=== PATIENT | male | born 1965 | race American Indian/Alaskan Native ===

== ENCOUNTER 2017-05-27 12:37 | Inpatient (IN) | payer MEDICAID ==
--- NOTE | 2017-05-27 13:03 | C.PDOC ---
History Of Present Illness 51 y/o male with PMHx HTN and COPD brought to ED by EMS from home with complaints of anxiety and feeling tremulous. Patient states he was been evicted from home and symptoms developed. Patient admits to being a daily ETOH consumer and reports last drink was this morning, states he had 1 beer. Patient is a smoker and denies fever, chills, sob, chest pain, nausea, vomiting or any other complaints at this time. PMD: Dr. Garcia Time Seen by Provider: 05/27/17 12:41 Chief Complaint (Nursing): Psychiatric Evaluation History Per: Patient History/Exam Limitations: no limitations Onset/Duration Of Symptoms: Hrs Current Symptoms Are (Timing): Still Present Suicide/Self Injury Attempted (Context): None Modifying Factor(s): Alcohol Past Medical History Reviewed: Historical Data, Nursing Documentation, Vital Signs Vital Signs: Last Vital Signs Temp 98.3 F 05/27/17 12:45 Pulse 100 H 05/27/17 12:45 Resp 18 05/27/17 12:45 BP 130/83 05/27/17 12:45 Pulse Ox 93 L 05/27/17 13:12 - Medical History PMH: COPD, HTN Surgical History: No Surg Hx Family History: States: No Known Family Hx - Social History Hx Alcohol Use: Yes Hx Substance Use: No - Immunization History Hx Tetanus Toxoid Vaccination: No Hx Influenza Vaccination: No Review Of Systems Constitutional: Negative for: Fever, Chills Cardiovascular: Negative for: Chest Pain Respiratory: Negative for: Shortness of Breath Gastrointestinal: Negative for: Nausea, Vomiting Skin: Negative for: Rash Psych: Positive for: Anxiety, Withdrawal Physical Exam - Physical Exam Appears: Non-toxic, Other (Anxious appearing, Frail, tremulous, thin appearing) Skin: Warm, Dry, No Rash Head: Atraumatic, Normacephalic Eye(s): bilateral: PERRL, EOMI Oral Mucosa: Moist Neck: Normal ROM, Supple Cardiovascular: Rhythm Regular Respiratory: Normal Breath Sounds, No Rales, No Rhonchi, No Wheezing Gastrointestinal/Abdominal: Soft, No Tenderness, No Guarding, No Rebound Extremity: Normal ROM, Capillary Refill (<2 seconds) Neurological/Psych: Oriented x3, Normal Speech, Normal Cognition Gait: Steady ED Course And Treatment - Laboratory Results Result Diagrams: 05/27/17 13:08 05/27/17 13:08 O2 Sat by Pulse Oximetry: 93 (RA) Medical Decision Making Medical Decision Making: Progress: Upon evaluation, patient offered detox admission. Patient mentioned having slight striking of blood in stool after staining this morning. States it happens once or twice a year. no abdominal pain, no anemia. Disposition Counseled Patient/Family Regarding: Studies Performed, Diagnosis - Disposition Disposition: HOSPITALIZED Disposition Time: 15:20 Condition: STABLE Forms: [facility] ([place]) - POA Present On Arrival: None - Clinical Impression Clinical Impression: Alcohol abuse - Scribe Statement The provider has reviewed the documentation as recorded by the Scribe Agapito Ortiz All medical record entries made by the Scribe were at my direction and personally dictated by me. I have reviewed the chart and agree that the record accurately reflects my personal performance of the history, physical exam, medical decision making, and the department course for this patient. I have also personally directed, reviewed, and agree with the discharge instructions and disposition. Decision To Admit - Pt Status Changed To: Hospital Disposition Of: Inpatient - Admit Certification Admit to Inpatient:: After my assessment, the patient will require hospitalization for at least two midnights. This is because of the severity of symptoms shown, intensity of services needed, and/or the medical risk in this patient being treated as an outpatient. - InPatient: Physician Admission Certification: I certify that this patient requires 2 or more midnights of care for the following reason:: needs inpatient detox - . Bed Request Type: Detox Admitting Physician: Rose Hardin Patient Diagnosis: Alcohol abuse
[2017-05-27 13:22] LABS: SQUAMOUS EPITHIAL < 1 /hpf (0-5); URINE BILIRUBIN NEGATIVE (NEGATIVE); URINE BLOOD NEGATIVE (NEGATIVE); URINE CLARITY Clear (Clear); URINE COLOR Yellow (YELLOW); URINE GLUCOSE (UA) NORMAL (Normal); URINE LEUKOCYTE ESTERASE NEG Leu/uL (Negative); URINE PROTEIN NEGATIVE (NEGATIVE); URINE UROBILINOGEN NORMAL mg/dL (0.2-1.0)
[2017-05-27 13:29] LABS: BASO # 0.1 K/uL (0.0-0.2); BASO % 1.8 % (0.0-2.0); EOS % 0.4 % (0.0-4.0); HEMOGLOBIN 13.6 g/dL (12.0-18.0); LYMPH # 2.7 K/uL (1.0-4.3); LYMPH % 47.4 % (20.0-40.0); MEAN CELL VOLUME 97.7 fL (80.0-94.0); MEAN CORPUSCULAR HEMOGLOBIN 33.3 pg (27.0-31.0); MEAN CORPUSCULAR HGB CONC 34.1 g/dL (33.0-37.0); MEAN PLATELET VOLUME 7.6 fL (7.2-11.7); MONO # 0.6 K/uL (0.0-0.8); MONO % 10.6 % (0.0-10.0); NEUT # 2.3 K/uL (1.8-7.0); NEUT % 39.8 % (50.0-75.0); NRBC % 0.2 % (0.0-2.0); RBC 4.08 Mil/uL (4.40-5.90); RED CELL DISTRIBUTION WIDTH 15.9 % (11.5-14.5); WHITE BLOOD COUNT 5.8 K/uL (4.8-10.8)
[2017-05-27 13:31] LABS: ALB/GLOB RATIO 0.9 (1.0-2.1); ALBUMIN 4.2 g/dL (3.5-5.0); ALT/SGPT 58 U/L (21-72); AST/SGOT 199 U/L (17-59); BLOOD UREA NITROGEN 8 mg/dL (9-20); GFR AFRICAN-AMERICAN > 60; GFR NON-AFRICAN AMERICAN > 60
[2017-05-27 13:40] LABS: BARBITURATES, UR NEGATIVE (NEGATIVE); BENZODIAZEPINES, UR NEGATIVE (NEGATIVE); OPIATES, UR NEGATIVE (NEGATIVE); PHENCYCLIDINE, UR NEGATIVE (NEGATIVE)
--- NOTE | 2017-05-27 15:45 | PCM.BM ---
<Odilia Neely - Last Filed: 05/27/17 15:44> Treatment Plan Problems - Problems identified on initial assessmt potiential for autonomic instability related to alcohol abuse Date Initiated: 05/27/17 Time Initiated: 15:45 Assessment reference: NA Status: Active - Milieu Protocol Maintain good personal hygiene: daily Encourage regular showers, daily Remind patient to perform daily oral care, daily Assist patient to perform ADL's Maintain personal safety: every shift Educate patient to report safety concerns to staff, every shift Monitor environment for contraband/sharps Medication safety: Monitor for expected outcome, potential side effects: every shift, Assess barriers to learning: every shift, Assess readiness for medication education: every shift <Agustin Stevenson - Last Filed: 06/05/17 18:26> - Diagnosis (1) Alcohol use disorder, severe, dependence Status: Acute Interventions: 06/05/17 18:25 * Assess 7x/week regarding severity of withdrawal * Educate regarding risks, benefits, side effects and alternatives of medications * Use Motivational Interviewing for abstinence * Use CBT for relapse prevention * Medication management for withdrawal symptoms * Encourage medication assisted treatment
[2017-05-27] MEDS: Multiple Vitamins Tab PO SCH (18:12)
[2017-05-27] MEDS ORDERED: Albuterol HFA 90 mcg/actuation (8 g) INH PRN (20:43)
[2017-05-28] MEDS: Multiple Vitamins Tab PO SCH (09:47)
--- NOTE | 2017-05-28 20:40 | PCM.PSYCH ---
Initial Psychiatric Evaluation - Initial Psychiatric Evaluation Type of Admission: Voluntary Legal Status: Capacity Chief Complaint (in patient's own words): I am withdrawing from alcohol use. History of Present Illness and Precipitating Events: Patient is a 51 years old, single, unemployed, -[place] male with no previous psychiatric history was admitted due to withdrawing from alcohol. Patient reported he started drinking alcohol at 15 years of age, increased gradually, currently he was drinking up to 4, 24 ounces cans of. Daily. Last drink yesterday. Denied any previous detox or rehabs. His longest period of abstinence was 5 weeks, 4 months ago. Denied use of any other drugs including cocaine, cannabis or heroin. Denied smoking cigarettes. Patient has history of right ankle surgery 10 years ago. He was born in [place], has 10th grade of education, his last job was in October 2013. Lost job due to downsizing of the [employer]. Unemployed since then. Never , has 2 sons, 29 years old and 15 years old. 15 years old lives with his mother. His height is 5 feet 10 inches and weight is 138 pounds. Current Medications: Active Medications Generic Name Dose Route Start Last Admin Trade Name Freq PRN Reason Stop Dose Admin Albuterol 1 puff 05/27/17 20:43 Ventolin Hfa 90 Mcg/Actuation (8 G) INH RQ4 PRN SOB Amlodipine Besylate 5 mg 05/27/17 17:00 05/28/17 09:47 Norvasc PO 5 mg DAILY KETURAH Administration Clonidine HCl 0.1 mg 05/27/17 16:50 05/28/17 04:41 Catapres PO 0.1 mg Q4H PRN Administration Symptoms of alcohol withdrawl Folic Acid 1 mg 05/27/17 17:00 05/28/17 09:47 Folic Acid PO 1 mg DAILY KETURAH Administration Hydroxyzine HCl 50 mg 05/27/17 20:43 Atarax PO Q6H PRN Anxiety Ibuprofen 600 mg 05/27/17 20:43 Motrin Tab PO Q6H PRN Pain, moderate (4-7) Lorazepam 1 mg 05/27/17 16:50 05/28/17 18:22 Ativan PO 1 mg Q4H PRN Administration Symptoms of alcohol withdrawl Lorazepam 2 mg 05/27/17 18:00 05/28/17 18:20 Ativan PO 06/01/17 17:59 Not Given Q6H KETURAH Taper Multivitamins 1 tab 05/27/17 17:00 05/28/17 09:47 Hexavitamin PO 1 tab DAILY KETURAH Administration Thiamine HCl 100 mg 05/27/17 17:00 05/28/17 09:47 Vitamin B1 Tab PO 100 mg DAILY KETURAH Administration Trazodone HCl 50 mg 05/27/17 16:50 Desyrel PO HS PRN Insomnia Past Psychiatric History - Past Psychiatric History Previous Treatment History: None History of Abuse: None reported History of ETOH/Drug Use: See HPI History of Family Illness: Reported his brother has unknown psychiatric illness and also history of substance use. Pertinent Medical Hx (Current Medical&Sleep Prob, Allergies): Allergies Allergy/AdvReac Type Severity Reaction Status Date / Time No Known Allergies Allergy Verified 05/27/17 12:54 Albuterol HFA [Ventolin HFA 90 mcg/actuation (8 g)] 2 puff IH [id number] 05/27/17 Benzonatate 200 mg PO BID 05/27/17 amLODIPine [Norvasc] 5 mg PO DAILY 05/27/17 COPD Review of Systems - Psychiatric Psychiatric: Anxiety Mental Status Examination - Personal Presentation Personal Presentation: Looks stated age - Affect Affect: Other (Appropriate) - Motor Activity Motor Activity: Calm - Reliability in Providing Information Reliability in Providing Information: Fair - Speech Speech: Relevant - Mood Mood: Anxious - Formal Thought Process Formal Thought Process: No Impairment - Hallucinations/Delusions Hallucinations: Other (None reported) Delusions: Other - Obsessions/Compulsions Obsessions: None Compulsions: None - Cognitive Functions Orientation: Person, Place, Situation, Time Sensorium: Alert Attention/Concentration: Attentive Abstract Thinking: [place] Estimate of Intelligence: Average Judgement: Intact, as evidence by: Insight regarding need for hospitalization Memory: Recent intact, as evidence by: Ability to recall events of the day, Remote intact, as evidenced by: Ability to recall historical events - Risk Risk: Withdrawal, Falls (Walks with walker), Diminished functioning - Strength & Assets Inventory Strength & Assets Inventory: Cooperative - Limitations Limitations: Living alone DSM 5 DX - DSM 5 DSM 5 Diagnosis: Alcohol use disorder severe - Recommended/Plan of Treatment Treatment Recommendations and Plan of Treatment: Patient education Supportive therapy CBT for relapse prevention [place] for abstinence We'll start Ativan detox protocol for alcohol withdrawal symptoms Other when necessary medications Projected ELOS: 4-5 days - Smoking Cessation Smoking Cessation Initiated: No Reason for not providing: Patient doesn't smoke cigarettes
[2017-05-29] MEDS: Multiple Vitamins Tab PO SCH (10:58)
--- NOTE | 2017-05-29 16:06 | CP.PCM.HP ---
History of Present Illness - History of Present Illness History of Present Illness: CC HPI: PMHx PSHx SHx Fam Hx: Allergies: NKA Past Patient History - Past Social History Smoking Status: Current Some Days Smoker - CARDIAC Hx Hypertension: Yes - PULMONARY Hx Chronic Obstructive Pulmonary Disease (COPD): Yes - MUSCULOSKELETAL/RHEUMATOLOGICAL Hx Falls: No - PSYCHIATRIC Hx Substance Use: Yes - SURGICAL HISTORY Hx Orthopedic Surgery: Yes (right ankle) Meds Allergies/Adverse Reactions: Allergies Allergy/AdvReac Type Severity Reaction Status Date / Time No Known Allergies Allergy Verified 05/27/17 12:54 Results - Vital Signs Recent Vital Signs: Last Vital Signs Temp 97.5 F L 05/29/17 14:10 Pulse 98 H 05/29/17 14:10 Resp 19 05/29/17 14:10 BP 150/90 05/29/17 14:10 Pulse Ox 98 05/29/17 14:10 - Labs Result Diagrams: 05/27/17 13:08 05/27/17 13:08
--- NOTE | 2017-05-29 16:39 | CP.PCM.PN ---
<Eber Cantu - Last Filed: 05/29/17 16:39> Subjective - Date & Time of Evaluation Date of Evaluation: 05/29/17 Time of Evaluation: 16:33 - Subjective Subjective: HOUSE DR JEFFERSON Resident paged to evaluate pt on detox floor for possible DTs. Pt found sitting comfortably sucking on blowpop in detox office. Nursing reports pt was expressing that "he was in a hotel" this afternoon. Pt found AAOx3, and aware of president of and context of his admission. Patient admits PMHx of HTN, COPD, and alcohol abuse in his past. He admits "4/5 beers per day x ~25 years" previously, but he has "stopped drinking completely recently." When confronted with EtOH level at admission patient relented and admitted having "a few beers" before admission. He denies chest pain, SOB, palpitations, abd pain, N/V/D/C. Pe: GEN: NAD, Pt calmly eating lollipop during interview, pt using walker for assistance in movement CV: Tachy, S1, S2, no murmur evident Lungs: CTA b/l Abd: Soft, non-tender Neuro: (pt compliant with exam but delayed responses) minimal tremor of hands, no tongue fasciculations, MS 5/5 in upper/lower ext, light sensation intact globally in upper extremities PSYCH: AAOx3 Plan EtOH abuse Ativan 2mg PO STAT AMS Pt AAOx3 CT Head w/o contrast PMD is Dr. Garcia - will follow up CT HEAD results, but will cede further care to discretion of patient's PMD, Dr. Laly Garcia Objective - Vital Signs/Intake and Output Vital Signs (last 24 hours): Temp Pulse Resp BP Pulse Ox 97.5 F L 98 H 19 150/90 98 05/29/17 14:10 05/29/17 14:10 05/29/17 14:10 05/29/17 14:10 05/29/17 14:10 - Medications Medications: Current Medications Albuterol (Ventolin Hfa 90 Mcg/Actuation (8 G)) 1 puff INH RQ4 PRN PRN Reason: SOB Amlodipine Besylate (Norvasc) 5 mg PO DAILY KETURAH Last Admin: 05/29/17 10:58 Dose: 5 mg Clonidine HCl (Catapres) 0.1 mg PO Q4H PRN PRN Reason: Symptoms of alcohol withdrawl Last Admin: 05/29/17 16:29 Dose: 0.1 mg Folic Acid (Folic Acid) 1 mg PO DAILY [facility] Last Admin: 05/29/17 10:58 Dose: 1 mg Hydroxyzine HCl (Atarax) 50 mg PO Q6H PRN PRN Reason: Anxiety Ibuprofen (Motrin Tab) 600 mg PO Q6H PRN PRN Reason: Pain, moderate (4-7) Lorazepam (Ativan) 1 mg PO Q4H PRN PRN Reason: Symptoms of alcohol withdrawl Last Admin: 05/28/17 18:22 Dose: 1 mg Lorazepam (Ativan) 2 mg PO Q6H [facility] PRN Reason: Taper Stop: 06/01/17 17:59 Last Admin: 05/29/17 13:12 Dose: Not Given Multivitamins (Hexavitamin) 1 tab PO DAILY [facility] Last Admin: 05/29/17 10:58 Dose: 1 tab Thiamine HCl (Vitamin B1 Tab) 100 mg PO DAILY [facility] Last Admin: 05/29/17 10:58 Dose: 100 mg Trazodone HCl (Desyrel) 50 mg PO HS PRN PRN Reason: Insomnia - Labs Labs: 05/27/17 13:08 05/27/17 13:08 <Iftikhar Mcginnis - Last Filed: 05/30/17 17:16> Objective - Vital Signs/Intake and Output Vital Signs (last 24 hours): Temp Pulse Resp BP Pulse Ox 98.5 F 102 H 18 144/85 98 05/30/17 16:16 05/30/17 16:16 05/30/17 16:16 05/30/17 16:16 05/30/17 16:16 - Medications Medications: Current Medications Albuterol (Ventolin Hfa 90 Mcg/Actuation (8 G)) 1 puff INH RQ4 PRN PRN Reason: SOB Amlodipine Besylate (Norvasc) 5 mg PO DAILY [facility] Last Admin: 05/30/17 09:36 Dose: 5 mg Clonidine HCl (Catapres) 0.1 mg PO Q4H PRN PRN Reason: Symptoms of alcohol withdrawl Last Admin: 05/29/17 16:29 Dose: 0.1 mg Folic Acid (Folic Acid) 1 mg PO DAILY [facility] Last Admin: 05/30/17 09:36 Dose: 1 mg Hydroxyzine HCl (Atarax) 50 mg PO Q6H PRN PRN Reason: Anxiety Ibuprofen (Motrin Tab) 600 mg PO Q6H PRN PRN Reason: Pain, moderate (4-7) Lorazepam (Ativan) 1 mg PO Q4H PRN PRN Reason: Symptoms of alcohol withdrawl Last Admin: 05/29/17 22:48 Dose: 1 mg Lorazepam (Ativan) 2 mg PO Q8H [facility] PRN Reason: Taper Stop: 06/01/17 17:59 Last Admin: 05/30/17 09:33 Dose: Not Given Multivitamins (Hexavitamin) 1 tab PO DAILY [facility] Last Admin: 05/30/17 09:36 Dose: 1 tab Thiamine HCl (Vitamin B1 Tab) 100 mg PO DAILY [facility] Last Admin: 05/30/17 09:36 Dose: 100 mg Trazodone HCl (Desyrel) 50 mg PO HS PRN PRN Reason: Insomnia Last Admin: 05/29/17 22:47 Dose: 50 mg - Labs Labs: 05/27/17 13:08 05/27/17 13:08 Attending/Attestation - Attestation I have personally seen and examined this patient.: Yes I have fully participated in the care of the patient.: Yes I have reviewed all pertinent clinical information, including history, physical exam and plan: Yes Notes (Text): 05/30/17 17:15 This is a late entry Patient was seen and examined with the resident. There is no confusion F/U CT Head
--- NOTE | 2017-05-29 16:57 | CT ---
PROCEDURE: CT HEAD WITHOUT CONTRAST. HISTORY: Altered mental status ; hx of alf alcohol COMPARISON: None available. TECHNIQUE: Axial computed tomography images were obtained through the head/brain without intravenous contrast. Radiation dose: Total exam DLP = 775.05 mGy-cm. This CT exam was performed using one or more of the following dose reduction techniques: Automated exposure control, adjustment of the mA and/or kV according to patient size, and/or use of iterative reconstruction technique. FINDINGS: HEMORRHAGE: No intracranial hemorrhage. BRAIN: There is no mass, mass effect or abnormal extra-axial fluid collection. There is no territorial infarction. VENTRICLES: There is mild age advanced global parenchymal volume loss with proportionate enlargement of the ventricles and cortical sulci. . CALVARIUM: Unremarkable. PARANASAL SINUSES: Predominantly clear. MASTOID AIR CELLS: Predominantly clear. OTHER FINDINGS: None. IMPRESSION: No acute intracranial abnormality. Mild global parenchymal volume loss, advanced for the patient's age.
--- NOTE | 2017-05-29 18:35 | PCM.PYCHPN ---
Psychiatric Progress Note - Psychiatric Progress Note Patient seen today, length of contact: 15 inutes Patient Chief Complaint: I'm feeling better Problems Identified/Issues Discussed: Patient seen, chart reviewed, case discussed with the staff Issues related to illness and treatment were discussed with the patient. Reported compliant with treatment with no adverse affects. Reported feeling little better with treatment. Still has withdrawal symptoms. Mood reported as anxious. Affect appropriate. Patient was awake alert oriented 3. Denied any delusions, auditory or visual hallucinations, suicidal ideations or homicidal ideation at the time of evaluation. Patient was evaluated in the morning with the above findings. In the afternoon nurse called and mentioned that patient is hallucinating believing he is in the hotel and wants to go off for shopping and smoking. Ordered medical consult to rule out DTs and patient was evaluated by medical doctor, found patient was stable and had no DTs for. Medical Problems: COPD Hypertension Diagnostic Results: Reviewed DSM 5 Symptoms Update: Improving with treatment Medication Change: No Consults ordered or reviewed: Reviewed Mental Status Examination - Cognitive Function Orientation: Person, Place, Situation, Time Memory: Intact Attention: WNL Concentration: WNL Association: WN Fund of Knowledge: [facility] Decription of patient's judgement and insights: Fair - Mood Mood: Anxious - Affect Affect: Other - Speech Speech: Appropriate (Appropriate) - Formal Thought Process Formal Thought Process: No Impairment Psychotic Thoughts and Behaviors: None - Suicidal Ideation Suicidal Ideation: No - Homicidal Ideation Homicidal Ideation: No Goal/Treatment Plan - Goal/Treatment Plan Need for Continued Stay: Remain at risks for inpatient hospitalization, Discharge may exacerbated symptoms, Severe functional impairment Progress Toward Problem(s) and Goals/Treatment Plan: Patient education Supportive therapy CBT for relapse prevention [place] for abstinence Continue treatment as before. We'll start 1-1 observation for patient safety. Estimated Date of D/C: 06/02/17 - Smoking Cessation Smoking Cessation Initiated: No Reason for not providing: Patient doesn't smoke cigarettes
[2017-05-30] MEDS: Multiple Vitamins Tab PO SCH (09:36)
--- NOTE | 2017-05-30 22:25 | PCM.PYCHPN ---
Psychiatric Progress Note - Psychiatric Progress Note Patient seen today, length of contact: 15 inutes Patient Chief Complaint: I'm feeling better Problems Identified/Issues Discussed: Patient seen, chart reviewed, case discussed with the staff Issues related to illness and treatment were discussed with the patient. Reported compliant with treatment with no adverse affects. Reported feeling better with treatment. Mood reported as okay. Affect appropriate. Patient was awake alert oriented 3. Denied any delusions, auditory or visual hallucinations, suicidal ideations or homicidal ideation at the time of evaluation. Medical Problems: COPD Attention Diagnostic Results: Reviewed DSM 5 Symptoms Update: Improving with treatment Medication Change: No Medical Record Reviewed: Yes Consults ordered or reviewed: Reviewed Mental Status Examination - Cognitive Function Orientation: Person, Place, Situation, Time Memory: Intact Attention: WNL Concentration: WNL Association: WN Fund of Knowledge: [facility] Decription of patient's judgement and insights: Fair - Mood Mood: Anxious (Less than before) - Affect Affect: Other - Speech Speech: Appropriate - Formal Thought Process Formal Thought Process: No Impairment Psychotic Thoughts and Behaviors: None - Suicidal Ideation Suicidal Ideation: No - Homicidal Ideation Homicidal Ideation: No Goal/Treatment Plan - Goal/Treatment Plan Need for Continued Stay: Remain at risks for inpatient hospitalization, Discharge may exacerbated symptoms, Severe functional impairment Progress Toward Problem(s) and Goals/Treatment Plan: Patient education Supportive therapy CBT for relapse prevention [place] for abstinence Continue treatment as before We will continue 1-1 precaution Estimated Date of D/C: 06/02/17 - Smoking Cessation Smoking Cessation Initiated: No Reason for not providing: Patient doesn't smoke cigarettes
[2017-05-31] MEDS: Multiple Vitamins Tab PO SCH (09:17)
--- NOTE | 2017-05-31 11:47 | CP.PCM.PN ---
Subjective - Date & Time of Evaluation Date of Evaluation: 05/31/17 Time of Evaluation: 09:00 - Subjective Subjective: PGY-[address] Garcia Patient seen and examined at bedside. Nursing staff reported patient was disoriented to place overnight. Otherwise patient is sitting comfortably. He denies fever, chills, headache, shortness of breath, chest pain, tremors, abdominal pain, or any seizure activities. Objective - Vital Signs/Intake and Output Vital Signs (last 24 hours): Temp Pulse Resp BP Pulse Ox 98.6 F 104 H 18 116/79 98 05/31/17 09:00 05/31/17 09:00 05/31/17 09:00 05/31/17 09:00 05/31/17 09:00 - Medications Medications: Current Medications Albuterol (Ventolin Hfa 90 Mcg/Actuation (8 G)) 1 puff INH RQ4 PRN PRN Reason: SOB Amlodipine Besylate (Norvasc) 5 mg PO DAILY [facility] Last Admin: 05/31/17 09:17 Dose: 5 mg Clonidine HCl (Catapres) 0.1 mg PO Q4H PRN PRN Reason: Symptoms of alcohol withdrawl Last Admin: 05/29/17 16:29 Dose: 0.1 mg Folic Acid (Folic Acid) 1 mg PO DAILY [facility] Last Admin: 05/31/17 09:17 Dose: 1 mg Hydroxyzine HCl (Atarax) 50 mg PO Q6H PRN PRN Reason: Anxiety Ibuprofen (Motrin Tab) 600 mg PO Q6H PRN PRN Reason: Pain, moderate (4-7) Lorazepam (Ativan) 1 mg PO Q4H PRN PRN Reason: Symptoms of alcohol withdrawl Last Admin: 05/31/17 09:17 Dose: 1 mg Lorazepam (Ativan) 2 mg PO Q12H [facility] PRN Reason: Taper Stop: 06/01/17 17:59 Last Admin: 05/31/17 06:56 Dose: Not Given Multivitamins (Hexavitamin) 1 tab PO DAILY [facility] Last Admin: 05/31/17 09:17 Dose: 1 tab Thiamine HCl (Vitamin B1 Tab) 100 mg PO DAILY [facility] Last Admin: 05/31/17 09:17 Dose: 100 mg Trazodone HCl (Desyrel) 50 mg PO HS PRN PRN Reason: Insomnia Last Admin: 05/29/17 22:47 Dose: 50 mg - Labs Labs: 05/27/17 13:08 05/27/17 13:08 - Constitutional Appears: Non-toxic, No Acute Distress - Head Exam Head Exam: ATRAUMATIC - Eye Exam Eye Exam: EOMI, Normal appearance - ENT Exam ENT Exam: Mucous Membranes Moist - Respiratory Exam Respiratory Exam: Clear to Ausculation Bilateral, NORMAL BREATHING PATTERN. absent: Respiratory Distress - Cardiovascular Exam Cardiovascular Exam: REGULAR RHYTHM, +S1, +S2. absent: Murmur - GI/Abdominal Exam GI & Abdominal Exam: Soft, Normal Bowel Sounds. absent: Tenderness - Extremities Exam Extremities Exam: Full ROM, Normal Capillary Refill, Normal Inspection. absent : Joint Swelling, Pedal Edema - Neurological Exam Neurological Exam: Alert, Awake, Oriented x3 Additional comments: No tremors, no sensory deficits - Psychiatric Exam Psychiatric exam: Normal Affect, Normal Mood - Skin Skin Exam: Dry, Warm Assessment and Plan - Assessment and Plan (Free Text) Assessment: EtOH abuse -Management per psychiatry team -Alcohol cessation was strongly advised -Last intake 05/27/17 AMS -Patient is alert, awake, and orient x3 -CT Head shows no intracranial abnormalities Discussed with Dr. Garcia
--- NOTE | 2017-05-31 19:38 | PCM.PYCHPN ---
Psychiatric Progress Note - Psychiatric Progress Note Patient seen today, length of contact: 15 inutes Patient Chief Complaint: I'm feeling better Problems Identified/Issues Discussed: Patient seen, chart reviewed, case discussed with the staff Issues related to illness and treatment were discussed with the patient. Reported compliant with treatment with no adverse affects. Reported feeling better with treatment. Mood reported as okay. Affect appropriate. Denied any delusions, auditory or visual hallucinations, suicidal ideations or homicidal ideation at the time of evaluation. The nurse reported in morning that patient was found confused immediately after awakening but later became better. At the time of evaluation, patient was awake , alert and oriented 3. Memory was also intact. Medical Problems: COPD Attention Diagnostic Results: Reviewed DSM 5 Symptoms Update: Improving with treatment Medication Change: No Medical Record Reviewed: Yes Consults ordered or reviewed: Reviewed Mental Status Examination - Cognitive Function Orientation: Person, Place, Situation, Time Memory: Intact Attention: WNL Concentration: WNL Association: WN Fund of Knowledge: [facility] Decription of patient's judgement and insights: Fair - Mood Mood: Anxious (Less than before) - Affect Affect: Other - Speech Speech: Appropriate - Formal Thought Process Formal Thought Process: No Impairment Psychotic Thoughts and Behaviors: None - Suicidal Ideation Suicidal Ideation: No - Homicidal Ideation Homicidal Ideation: No Goal/Treatment Plan - Goal/Treatment Plan Need for Continued Stay: Remain at risks for inpatient hospitalization, Discharge may exacerbated symptoms, Severe functional impairment Progress Toward Problem(s) and Goals/Treatment Plan: Patient education Supportive therapy CBT for relapse prevention [place] for abstinence Continue treatment as before We will continue 1-1 precaution Estimated Date of D/C: 06/02/17 - Smoking Cessation Smoking Cessation Initiated: No Reason for not providing: Patient doesn't smoke cigarettes
--- NOTE | 2017-06-01 09:52 | CP.PCM.PN ---
Subjective - Date & Time of Evaluation Date of Evaluation: 06/01/17 Time of Evaluation: 09:52 - Subjective Subjective: Medicine progress note for Dr. Garcia's service Patient seen and examined. Patient resting comfortably in bed with 1:1 at bedside. Patient denies complaints currently, states he feels okay. His only complaint is chronic cough. Objective - Vital Signs/Intake and Output Vital Signs (last 24 hours): Temp Pulse Resp BP Pulse Ox 98.3 F 100 H 18 124/82 95 06/01/17 02:54 06/01/17 02:54 06/01/17 02:54 06/01/17 02:54 06/01/17 02:54 - Medications Medications: Current Medications Albuterol (Ventolin Hfa 90 Mcg/Actuation (8 G)) 1 puff INH RQ4 PRN PRN Reason: SOB Amlodipine Besylate (Norvasc) 5 mg PO DAILY [facility] Last Admin: 05/31/17 09:17 Dose: 5 mg Clonidine HCl (Catapres) 0.1 mg PO Q4H PRN PRN Reason: Symptoms of alcohol withdrawl Last Admin: 05/29/17 16:29 Dose: 0.1 mg Folic Acid (Folic Acid) 1 mg PO DAILY [facility] Last Admin: 05/31/17 09:17 Dose: 1 mg Hydroxyzine HCl (Atarax) 50 mg PO Q6H PRN PRN Reason: Anxiety Ibuprofen (Motrin Tab) 600 mg PO Q6H PRN PRN Reason: Pain, moderate (4-7) Loperamide HCl (Imodium) 2 mg PO Q6 PRN PRN Reason: loose stool Lorazepam (Ativan) 1 mg PO Q4H PRN PRN Reason: Symptoms of alcohol withdrawl Last Admin: 05/31/17 17:20 Dose: 1 mg Lorazepam (Ativan) 2 mg PO Q24H [facility] PRN Reason: Taper Stop: 06/01/17 17:59 Last Admin: 05/31/17 17:14 Dose: Not Given Multivitamins (Hexavitamin) 1 tab PO DAILY [facility] Last Admin: 05/31/17 09:17 Dose: 1 tab Thiamine HCl (Vitamin B1 Tab) 100 mg PO DAILY [facility] Last Admin: 05/31/17 09:17 Dose: 100 mg Trazodone HCl (Desyrel) 50 mg PO HS PRN PRN Reason: Insomnia Last Admin: 05/29/17 22:47 Dose: 50 mg - Labs Labs: 05/27/17 13:08 05/27/17 13:08 - Constitutional Appears: Non-toxic, No Acute Distress - Head Exam Head Exam: ATRAUMATIC, NORMOCEPHALIC - Eye Exam Eye Exam: EOMI - ENT Exam ENT Exam: Mucous Membranes Moist - Respiratory Exam Respiratory Exam: Clear to Ausculation Bilateral, NORMAL BREATHING PATTERN - Cardiovascular Exam Cardiovascular Exam: +S1, +S2 - GI/Abdominal Exam GI & Abdominal Exam: Soft, Normal Bowel Sounds. absent: Tenderness - Extremities Exam Extremities Exam: Normal Inspection. absent: Pedal Edema - Neurological Exam Neurological Exam: Alert, Awake, Oriented x3 - Skin Skin Exam: Warm Assessment and Plan - Assessment and Plan (Free Text) Assessment: Alcohol Abuse -Management per psychiatry/ detox team -Alcohol cessation was strongly advised -Last intake 05/27/17 COPD patient reports 30+ years of smoking 1ppd patient was on Symbicort as outpatient will start Advair 250/50 Q12h HTN continue home medication Norvasc 5m PO daily Altered mental status -Patient is alert, awake, and orient x3 -CT Head shows no intracranial abnormalities Management as per Dr. Garcia
[2017-06-01] MEDS: Multiple Vitamins Tab PO SCH (10:44)
[2017-06-01] MEDS: Fluticasone-Salmeterol 250-50mcg Diskus INH SCH (19:47)
--- NOTE | 2017-06-01 23:29 | PCM.PYCHPN ---
Psychiatric Progress Note - Psychiatric Progress Note Patient seen today, length of contact: 15 inutes Patient Chief Complaint: I'm feeling better Problems Identified/Issues Discussed: Patient seen, chart reviewed, case discussed with the staff Issues related to illness and treatment were discussed with the patient. Reported compliant with treatment with no adverse affects. Reported feeling better with treatment. Mood reported as okay. Affect appropriate. Denied any delusions, auditory or visual hallucinations, suicidal ideations or homicidal ideation at the time of evaluation. The nurse reported that patient was found confused immediately after awakening but later became better. At the time of evaluation, patient was awake, alert and oriented 3. Memory was also intact. Medical Problems: COPD Attention Diagnostic Results: Reviewed DSM 5 Symptoms Update: Improving with treatment Medication Change: No Medical Record Reviewed: Yes Consults ordered or reviewed: Reviewed Mental Status Examination - Cognitive Function Orientation: Person, Place, Situation, Time Memory: Intact Attention: WNL Concentration: WNL Association: [facility] Fund of Knowledge: [facility] Decription of patient's judgement and insights: Fair - Mood Mood: Anxious (Less than before) - Affect Affect: Other - Speech Speech: Appropriate - Formal Thought Process Formal Thought Process: No Impairment Psychotic Thoughts and Behaviors: None - Suicidal Ideation Suicidal Ideation: No - Homicidal Ideation Homicidal Ideation: No Goal/Treatment Plan - Goal/Treatment Plan Need for Continued Stay: Remain at risks for inpatient hospitalization, Discharge may exacerbated symptoms, Severe functional impairment Progress Toward Problem(s) and Goals/Treatment Plan: Patient education Supportive therapy CBT for relapse prevention [place] for abstinence Continue treatment as before We will continue 1-1 precaution Estimated Date of D/C: 06/02/17 - Smoking Cessation Smoking Cessation Initiated: No
--- NOTE | 2017-06-02 07:28 | CP.PCM.PN ---
Subjective - Date & Time of Evaluation Date of Evaluation: 06/02/17 Time of Evaluation: 07:16 - Subjective Subjective: Medicine progress note for Dr. Garcia's service Patient seen and examined at bedside. Nursing reports no acute events overnight. Patient found eating breakfast. Patient states his cough is greatly improved with inhaler. His only complaint today is his "hemorrhoid is acting up. " Patient reports blood on toilet tissue when wiping after voiding. Denies lightheadedness, dizziness, SOB, chest pain. Objective - Vital Signs/Intake and Output Vital Signs (last 24 hours): Temp Pulse Resp BP Pulse Ox 97.7 F 97 H 18 123/79 96 06/02/17 06:46 06/02/17 06:46 06/02/17 06:46 06/02/17 06:46 06/02/17 06:46 - Medications Medications: Current Medications Albuterol (Ventolin Hfa 90 Mcg/Actuation (8 G)) 1 puff INH RQ4 PRN PRN Reason: SOB Amlodipine Besylate (Norvasc) 5 mg PO DAILY [facility] Last Admin: 06/01/17 10:44 Dose: 5 mg Clonidine HCl (Catapres) 0.1 mg PO Q4H PRN PRN Reason: Symptoms of alcohol withdrawl Last Admin: 05/29/17 16:29 Dose: 0.1 mg Folic Acid (Folic Acid) 1 mg PO DAILY [facility] Last Admin: 06/01/17 10:44 Dose: 1 mg Hydroxyzine HCl (Atarax) 50 mg PO Q6H PRN PRN Reason: Anxiety Ibuprofen (Motrin Tab) 600 mg PO Q6H PRN PRN Reason: Pain, moderate (4-7) Loperamide HCl (Imodium) 2 mg PO Q6 PRN PRN Reason: loose stool Last Admin: 06/01/17 22:04 Dose: 2 mg Lorazepam (Ativan) 1 mg PO Q4H PRN PRN Reason: Symptoms of alcohol withdrawl Last Admin: 06/01/17 22:04 Dose: 1 mg Multivitamins (Hexavitamin) 1 tab PO DAILY [facility] Last Admin: 06/01/17 10:44 Dose: 1 tab Fluticasone/Salmeterol (Advair Diskus 250/50) 1 puff INH RQ12 [facility] Last Admin: 06/01/17 19:47 Dose: 1 inhaler Thiamine HCl (Vitamin B1 Tab) 100 mg PO DAILY [facility] Last Admin: 06/01/17 10:44 Dose: 100 mg Trazodone HCl (Desyrel) 50 mg PO HS PRN PRN Reason: Insomnia Last Admin: 05/29/17 22:47 Dose: 50 mg - Labs Labs: 05/27/17 13:08 05/27/17 13:08 - Additional Findings Additional findings: - Constitutional Appears: Non-toxic, No Acute Distress - Head Exam Head Exam: ATRAUMATIC, NORMOCEPHALIC - Eye Exam Eye Exam: EOMI - ENT Exam ENT Exam: Mucous Membranes Moist - Respiratory Exam Respiratory Exam: Clear to Ausculation Bilateral, NORMAL BREATHING PATTERN - Cardiovascular Exam Cardiovascular Exam: +S1, +S2 - GI/Abdominal Exam GI & Abdominal Exam: Soft, Normal Bowel Sounds. absent: Tenderness - RECTAL EXAM (external): performed with nurse present as bridal gown fitter, large red/ raw external hemorrhoid on left side of anus - Extremities Exam Extremities Exam: Normal Inspection. absent: Pedal Edema - Neurological Exam Neurological Exam: Alert, Awake, Oriented x3 - Skin Skin Exam: Warm Assessment and Plan - Assessment and Plan (Free Text) Plan: Alcohol Abuse -Management per psychiatry/ detox team -Alcohol cessation was strongly advised -Last intake 05/27/17 External hemorrhoid Colace 100mg PO TID Preparation H High fiber diet/increased water intake, less caffeine Patient should seek outpatient follow-up from GI - may need ligation/hemorroidectomy COPD patient reports 30+ years of smoking 1ppd patient was on Symbicort as outpatient will start Advair 250/50 Q12h HTN Well controlled continue home medication Norvasc 5m PO daily Altered mental status -Patient is alert, awake, and orient x3 -CT Head shows no intracranial abnormalities Management as per Dr. Garcia
[2017-06-02] MEDS ORDERED: Hemorrohoidal Ointment (2 oz) TOP PRN (08:07)
[2017-06-02] MEDS: Fluticasone-Salmeterol 250-50mcg Diskus INH SCH ×2 (08:58→20:13)
[2017-06-02] MEDS: Multiple Vitamins Tab PO SCH (10:27)
[2017-06-02 11:13] LABS: HEMOGLOBIN 12.4 g/dL (12.0-18.0); MEAN CELL VOLUME 97.1 fL (80.0-94.0); MEAN CORPUSCULAR HEMOGLOBIN 33.5 pg (27.0-31.0); MEAN CORPUSCULAR HGB CONC 34.5 g/dL (33.0-37.0); RBC 3.7 Mil/uL (4.40-5.90); RED CELL DISTRIBUTION WIDTH 15.7 % (11.5-14.5)
[2017-06-02 11:16] LABS: WHITE BLOOD COUNT 9.9 K/uL (4.8-10.8)
--- NOTE | 2017-06-02 15:58 | PCM.PYCHPN ---
Psychiatric Progress Note - Psychiatric Progress Note Patient seen today, length of contact: 15 inutes Patient Chief Complaint: I'm feeling much better Problems Identified/Issues Discussed: Patient seen, chart reviewed, case discussed with the staff Issues related to illness and treatment were discussed with the patient. Reported compliant with treatment with no adverse affects. Reported feeling much better with treatment. Patient seen one-to-one observation was discontinued. Patient can walk properly with walker. Mood reported as good. Affect appropriate. Denied any delusions, auditory or visual hallucinations, suicidal ideations or homicidal ideation at the time of evaluation. At the time of evaluation, patient was awake, alert and oriented 3. Memory was also intact. Patient denied any delusions, no auditory or visual hallucinations, no suicidal ideations or homicidal ideations. Medical Problems: COPD Diagnostic Results: Reviewed DSM 5 Symptoms Update: Much improvement with treatment Medication Change: No Medical Record Reviewed: Yes Consults ordered or reviewed: Reviewed Mental Status Examination - Cognitive Function Orientation: Person, Place, Situation, Time Memory: Intact Attention: WNL Concentration: WNL Association: [facility] Fund of Knowledge: [facility] Decription of patient's judgement and insights: Fair - Mood Mood: Neutral - Affect Affect: Other (Appropriate) - Speech Speech: Appropriate - Formal Thought Process Formal Thought Process: No Impairment Psychotic Thoughts and Behaviors: None - Suicidal Ideation Suicidal Ideation: No - Homicidal Ideation Homicidal Ideation: No Goal/Treatment Plan - Goal/Treatment Plan Need for Continued Stay: Remain at risks for inpatient hospitalization, Discharge may exacerbated symptoms, Severe functional impairment Progress Toward Problem(s) and Goals/Treatment Plan: Patient education Supportive therapy CBT for relapse prevention [place] for abstinence Continue treatment as before We will discontinue 1-1 precaution Estimated Date of D/C: 06/02/17 - Smoking Cessation Smoking Cessation Initiated: No
[2017-06-03] MEDS: Fluticasone-Salmeterol 250-50mcg Diskus INH SCH ×2 (09:02→20:15)
[2017-06-03] MEDS: Multiple Vitamins Tab PO SCH (10:18)
--- NOTE | 2017-06-03 14:25 | CP.PCM.PN ---
Subjective - Date & Time of Evaluation Date of Evaluation: 06/03/17 Time of Evaluation: 10:10 - Subjective Subjective: Medicine progress note for Dr. Garcia's service Patient seen and examined. Patient seen ambulating well in detox unit with walker. Patient states he is feeling better and is eating well. Patient states hemorrhoid is still inflamed. Objective - Vital Signs/Intake and Output Vital Signs (last 24 hours): Temp Pulse Resp BP Pulse Ox 98.8 F 100 H 18 100/67 95 06/03/17 09:18 06/03/17 09:18 06/03/17 09:18 06/03/17 09:18 06/03/17 09:18 - Medications Medications: Current Medications Albuterol (Ventolin Hfa 90 Mcg/Actuation (8 G)) 1 puff INH RQ4 PRN PRN Reason: SOB Amlodipine Besylate (Norvasc) 5 mg PO DAILY [facility] Last Admin: 06/03/17 10:18 Dose: 5 mg Clonidine HCl (Catapres) 0.1 mg PO Q4H PRN PRN Reason: Symptoms of alcohol withdrawl Last Admin: 05/29/17 16:29 Dose: 0.1 mg Docusate Sodium (Colace) 100 mg PO TID [facility] Last Admin: 06/03/17 14:05 Dose: Not Given Folic Acid (Folic Acid) 1 mg PO DAILY [facility] Last Admin: 06/03/17 10:18 Dose: 1 mg Hydroxyzine HCl (Atarax) 50 mg PO Q6H PRN PRN Reason: Anxiety Ibuprofen (Motrin Tab) 600 mg PO Q6H PRN PRN Reason: Pain, moderate (4-7) Loperamide HCl (Imodium) 2 mg PO Q6 PRN PRN Reason: loose stool Last Admin: 06/01/17 22:04 Dose: 2 mg Lorazepam (Ativan) 1 mg PO Q4H PRN PRN Reason: Symptoms of alcohol withdrawl Last Admin: 06/02/17 21:19 Dose: 1 mg Multi-Ingredient Ointment (Prep-Hem) 1 ea TOP Q6H PRN PRN Reason: Hemorrhoids Last Admin: 06/02/17 11:43 Dose: 1 applic Multivitamins (Hexavitamin) 1 tab PO DAILY [facility] Last Admin: 06/03/17 10:18 Dose: 1 tab Fluticasone/Salmeterol (Advair Diskus 250/50) 1 puff INH RQ12 [facility] Last Admin: 06/03/17 09:02 Dose: Not Given Thiamine HCl (Vitamin B1 Tab) 100 mg PO DAILY [facility] Last Admin: 06/03/17 10:18 Dose: 100 mg Trazodone HCl (Desyrel) 50 mg PO HS PRN PRN Reason: Insomnia Last Admin: 05/29/17 22:47 Dose: 50 mg - Labs Labs: 06/02/17 11:09 05/27/17 13:08 - Constitutional Appears: Non-toxic, No Acute Distress - Head Exam Head Exam: ATRAUMATIC, NORMOCEPHALIC - Eye Exam Eye Exam: EOMI - ENT Exam ENT Exam: Mucous Membranes Moist - Respiratory Exam Respiratory Exam: Clear to Ausculation Bilateral, NORMAL BREATHING PATTERN - Cardiovascular Exam Cardiovascular Exam: +S1, +S2 - GI/Abdominal Exam GI & Abdominal Exam: Soft. absent: Tenderness - Extremities Exam Extremities Exam: Normal Inspection - Neurological Exam Neurological Exam: Alert, Awake - Psychiatric Exam Psychiatric exam: Normal Affect - Skin Skin Exam: Warm Assessment and Plan - Assessment and Plan (Free Text) Assessment: Alcohol Abuse -Management per psychiatry/ detox team -Alcohol cessation was strongly advised -Last intake 05/27/17 External hemorrhoid Colace 100mg PO TID Preparation H High fiber diet/increased water intake, less caffeine Patient should seek outpatient follow-up from GI - may need ligation/hemorroidectomy COPD patient reports 30+ years of smoking 1ppd patient was on Symbicort as outpatient continue Advair 250/50 Q12h HTN Well controlled continue home medication Norvasc 5m PO daily Altered mental status resolved -Patient is alert, awake, and orient x3 -CT Head shows no intracranial abnormalities Disposition: pending approval for possible discharge to [facility] Management as per Dr. Garcia
[2017-06-03 16:18] VITALS: RESP 18
--- NOTE | 2017-06-03 23:24 | PCM.PYCHPN ---
Psychiatric Progress Note - Psychiatric Progress Note Patient seen today, length of contact: 15 inutes Patient Chief Complaint: I'm feeling much better Problems Identified/Issues Discussed: Patient seen, chart reviewed, case discussed with the staff Issues related to illness and treatment were discussed with the patient. Reported compliant with treatment with no adverse affects. Reported feeling much better with treatment. Patient seen one-to-one observation was discontinued. Patient can walk properly with walker. Mood reported as good. Affect appropriate. Denied any delusions, auditory or visual hallucinations, suicidal ideations or homicidal ideation at the time of evaluation. At the time of evaluation, patient was awake, alert and oriented 3. Memory was also intact. Patient denied any delusions, no auditory or visual hallucinations, no suicidal ideations or homicidal ideations. Medical Problems: COPD Diagnostic Results: Reviewed Medication Change: No Medical Record Reviewed: Yes Mental Status Examination - Cognitive Function Orientation: Person, Place, Situation, Time Memory: Intact Attention: WNL Concentration: WNL Association: WNL Fund of Knowledge: [facility] Decription of patient's judgement and insights: Fair - Mood Mood: Neutral - Affect Affect: Other (Appropriate) - Speech Speech: Appropriate - Formal Thought Process Formal Thought Process: No Impairment Psychotic Thoughts and Behaviors: None - Suicidal Ideation Suicidal Ideation: No - Homicidal Ideation Homicidal Ideation: No Goal/Treatment Plan - Goal/Treatment Plan Need for Continued Stay: Remain at risks for inpatient hospitalization, Discharge may exacerbated symptoms, Severe functional impairment Progress Toward Problem(s) and Goals/Treatment Plan: Patient education Supportive therapy CBT for relapse prevention [place] for abstinence Continue treatment as before We will discontinue 1-1 precaution Estimated Date of D/C: 06/02/17
--- NOTE | 2017-06-04 07:14 | CP.PCM.PN ---
Subjective - Date & Time of Evaluation Date of Evaluation: 06/04/17 Time of Evaluation: 07:12 - Subjective Subjective: PGY-[address] Wallace's service Patient seen and examined. Nursing reports no acute events overnight. Patient seen ambulating well in detox unit with walker. Pt asking about follow up for hemorroids. Gave education/instruction about sitz bath, application of anusol, hydration, and colace as stool softener. Patient understood and verbalized agreement with these instructions. He will follow with DR. WALLACE's office regarding future GI outpatient follow up. Admits continued itchiness/pain in anal region, but denies fever, chills, headache, aylin bleeding, chest pain, dizziness, abdominal pain, N/V. Objective - Vital Signs/Intake and Output Vital Signs (last 24 hours): Temp Pulse Resp BP Pulse Ox 99.4 F 100 H 18 101/65 95 06/04/17 05:02 06/04/17 05:02 06/04/17 05:02 06/04/17 05:02 06/04/17 05:02 - Medications Medications: Current Medications Albuterol (Ventolin Hfa 90 Mcg/Actuation (8 G)) 1 puff INH RQ4 PRN PRN Reason: SOB Amlodipine Besylate (Norvasc) 5 mg PO DAILY [facility] Last Admin: 06/03/17 10:18 Dose: 5 mg Clonidine HCl (Catapres) 0.1 mg PO Q4H PRN PRN Reason: Symptoms of alcohol withdrawl Last Admin: 06/03/17 21:17 Dose: 0.1 mg Docusate Sodium (Colace) 100 mg PO TID [facility] Last Admin: 06/03/17 17:47 Dose: Not Given Folic Acid (Folic Acid) 1 mg PO DAILY [facility] Last Admin: 06/03/17 10:18 Dose: 1 mg Hydroxyzine HCl (Atarax) 50 mg PO Q6H PRN PRN Reason: Anxiety Last Admin: 06/03/17 21:17 Dose: 50 mg Ibuprofen (Motrin Tab) 600 mg PO Q6H PRN PRN Reason: Pain, moderate (4-7) Loperamide HCl (Imodium) 2 mg PO Q6 PRN PRN Reason: loose stool Last Admin: 06/01/17 22:04 Dose: 2 mg Lorazepam (Ativan) 1 mg PO Q4H PRN PRN Reason: Symptoms of alcohol withdrawl Last Admin: 06/03/17 21:17 Dose: 1 mg Multi-Ingredient Ointment (Prep-Hem) 1 ea TOP Q6H PRN PRN Reason: Hemorrhoids Last Admin: 06/02/17 11:43 Dose: 1 applic Multivitamins (Hexavitamin) 1 tab PO DAILY [facility] Last Admin: 06/03/17 10:18 Dose: 1 tab Fluticasone/Salmeterol (Advair Diskus 250/50) 1 puff INH RQ12 [facility] Last Admin: 06/03/17 20:15 Dose: 1 inhaler Thiamine HCl (Vitamin B1 Tab) 100 mg PO DAILY [facility] Last Admin: 06/03/17 10:18 Dose: 100 mg Trazodone HCl (Desyrel) 50 mg PO HS PRN PRN Reason: Insomnia Last Admin: 05/29/17 22:47 Dose: 50 mg - Labs Labs: 06/02/17 11:09 05/27/17 13:08 - Additional Findings Additional findings: - Constitutional Appears: Non-toxic, No Acute Distress - Head Exam Head Exam: ATRAUMATIC, NORMOCEPHALIC - Eye Exam Eye Exam: EOMI, no pallor - ENT Exam ENT Exam: Mucous Membranes Moist - Respiratory Exam Respiratory Exam: Clear to Ausculation Bilateral, NORMAL BREATHING PATTERN - Cardiovascular Exam Cardiovascular Exam: +S1, +S2 - GI/Abdominal Exam GI & Abdominal Exam: Soft, non-distended absent: Tenderness - Extremities Exam Extremities Exam: Normal Inspection - Neurological Exam Neurological Exam: Alert, Awake - Psychiatric Exam Psychiatric exam: Normal Affect - Skin Skin Exam: Warm Assessment and Plan - Assessment and Plan (Free Text) Plan: Alcohol Abuse -Management per psychiatry/ detox team -Alcohol cessation was strongly advised -Last intake 05/27/17 External hemorrhoid Colace 100mg PO TID Preparation H High fiber diet/increased water intake, less caffeine Patient should seek outpatient follow-up from GI - may need ligation/hemorroidectomy COPD patient reports 30+ years of smoking 1ppd patient was on Symbicort as outpatient continue Advair 250/50 Q12h HTN Well controlled continue home medication Norvasc 5m PO daily Altered mental status resolved -Patient is alert, awake, and orient x3 -CT Head shows no intracranial abnormalities Disposition: discharge home to from detox Management as per Dr. Wallace
[2017-06-04 08:50] VITALS: BP 90/60; PULSE 97; TEMP 99.6; O2SAT 97
[2017-06-04] MEDS: Fluticasone-Salmeterol 250-50mcg Diskus INH SCH (09:00)
[2017-06-04] MEDS: Multiple Vitamins Tab PO SCH (09:49)
--- NOTE | 2017-06-05 17:37 | PCM.PYCHDC ---
Mental Status Examination - Mental Status Examination Orientation: Person, Place, Situation, Time Memory: Intact Mood: Neutral Affect: Other (Appropriate) Speech: Appropriate Attention: WNL Concentration: WNL Association: WNL Fund of Knowledge: WNL Formal Thought Process: No Impairment Description of patient's judgement and insight: Fair Psychotic Thoughts and Behaviors: None Suicidal Ideation: No Current Homicidal Ideation?: No Discharge Summary - Discharge Note Reason for Hospitalization: Alcohol use disorder severe Laboratory Data: Reviewed Consultations:: List each consultation separately and include: 1. Reason for request. 2. Findings. 3. Follow-up Consultations: Reviewed Summary of Hospital Course include:: 1. Description of specific treatment plan utilized for patients during their course of treatmen. 2. Summarize the time- course for resolution of acute symptoms and/or regressed behaviors. 3. Describe issues identified and worked on during hospitalization. 4. Describe medication utilized. 5. Describe medical problems identified and treated. 6. Reassessment of suicide risk Summary of Hospital Course: Patient is a 51 years old, single, unemployed, -[place] male with no previous psychiatric history was admitted due to withdrawing from alcohol. Patient reported he started drinking alcohol at 15 years of age, increased gradually, currently he was drinking up to 4, 24 ounces cans of. Daily. Last drink yesterday. Denied any previous detox or rehabs. His longest period of abstinence was 5 weeks, 4 months ago. Denied use of any other drugs including cocaine, cannabis or heroin. Denied smoking cigarettes. Patient has history of right ankle surgery 10 years ago. He was born in [place], has 10th grade of education, his last job was in October 2013. Lost job due to downsizing of the company. Unemployed since then. Never , has 2 sons, 29 years old and 15 years old. 15 years old lives with his mother. His height is 5 feet 10 inches and weight is 138 pounds. During his stay in the hospital patient was treated with Ativan taper for alcohol withdrawal symptoms. He was started on other when necessary medications. During this admission patient was also evaluated by medicine. With above treatment patient started feeling better. Today patient was stable and ready for discharge from the hospital. His time of evaluation and discharge, patient was awake alert oriented 3, had no delusions, no auditory visual hallucinations, no suicidal ideations or homicidal ideations. Patient was discharged in a stable condition. - Final Diagnosis (DSM 5) Condition upon Discharge: STABLE Disposition: HOME/ ROUTINE Follow-up Treatment Plan: Patient will go to Dr. Garcia Prescriptions/Medication Reconciliation: amLODIPine [Norvasc] 5 mg PO DAILY #30 tab traZODone [Desyrel] 50 mg PO HS PRN #30 tab PRN Reason: Insomnia - Smoking Cessation Smoking Cessation Medication prescribed: No - Antipsychotic Medications Pt discharged on 2 or more routine antipsychotic medications: No
== END 2017-06-04 11:30 | disposition home or self-care (01) | DRG 750 ==
LOC: C.ER 12:37 → C.7D 15:23
PROVIDERS: ADMIT Psychiatry & Neurology Psychiatry; ATTEND Psychiatry & Neurology Psychiatry
PROC: HZ2ZZZZ Detoxification Services for Substance Abuse Treatment (ICD-10-PCS; principal; 2017-05-27)
PROC: HZ52ZZZ Individual Psychotherapy for Substance Abuse Treatment, Cognitive-Behavioral (ICD-10-PCS; 2017-05-27)
PROC: HZ59ZZZ Individual Psychotherapy for Substance Abuse Treatment, Supportive (ICD-10-PCS; 2017-05-27)
PROC: HZ42ZZZ Group Counseling for Substance Abuse Treatment, Cognitive-Behavioral (ICD-10-PCS; 2017-05-27)
DX: F10.230 Alcohol dependence with withdrawal, uncomplicated (principal); J44.9 Chronic obstructive pulmonary disease, unspecified; F17.210 Nicotine dependence, cigarettes, uncomplicated; F41.9 Anxiety disorder, unspecified; I10 Essential (primary) hypertension; K64.4 Residual hemorrhoidal skin tags; Y90.8 Blood alcohol level of 240 mg/100 ml or more